=== PATIENT | female | born 1960 | race American Indian/Alaskan Native ===

== ENCOUNTER 2020-10-09 08:41 | Emergency (ER) | payer SELFPAY ==
[2020-10-09 08:48] VITALS: BP 142/75
[2020-10-09] MEDS ORDERED: KETOROLAC 60 MG/2 ML INJ IM ONE (10:17)
--- NOTE | 2020-10-09 10:21 | Emergency Department Report ---
ED Extremity Problem HPI - General Chief complaint: Extremity Problem,Nontraumatic Stated complaint: PAIN IN BOTH LEGS Time Seen by Provider: 10/09/20 09:52 Source: patient Mode of arrival: Ambulatory Limitations: No Limitations - History of Present Illness Initial comments: 60-year-old female with a past medical history of bipolar disorder and hyperten christiano presents to the ER today with complaints of bilateral lower extremity pain but more so on the left leg, posterior to left knee and left lower leg. Patient states that this is an ongoing pain since the beginning of the year. She states that she has seen a primary care doctor while she was living in [facility] and she was told was related to neuropathy. She was prescribed gabapentin which she states that she has been taking but does not seem to be helping. Patient states that she recently moved here a week ago and has not established with a primary care doctor. She is never seen store operations specialist for her pain. She denies any injury prior to the onset of her pain several months ago and she denies any recent injury. She describes the pain as a burning, sharp, tingling, numb pain. She reports intermittent lower back pain with the leg pain. She denies any lower extremity swelling, skin discoloration, chest pain or shortness of breath. MD Complaint: extremity pain -: Gradual (Chronic ) Location: left, right, lower extremity - Related Data Previous Rx's Medication Instructions Recorded Last Taken Type Acetaminophen/Codeine [Tylenol 1 tab PO Q6H PRN #12 tab 10/09/20 Unknown Rx /Codeine # 3 tab] methylPREDNISolone [Medrol 4MG 4 mg PO DAILY #1 tab.ds.pk 10/09/20 Unknown Rx DOSEPAK (21 tabs)] Allergies Allergy/AdvReac Type Severity Reaction Status Date / Time No Known Allergies Allergy Verified 10/09/20 08:56 ED Review of Systems ROS: Stated complaint: PAIN IN BOTH LEGS Other details as noted in HPI ED Past Medical Hx - Past Medical History Previous Medical History?: Yes Hx Hypertension: Yes - Surgical History Past Surgical History?: Yes Additional Surgical History: breast - Social History Smoking Status: Never Smoker - Medications Home Medications: Home Medications Medication Instructions Recorded Confirmed Last Taken Type Acetaminophen/Codeine [Tylenol 1 tab PO Q6H PRN #12 tab 10/09/20 Unknown Rx /Codeine # 3 tab] methylPREDNISolone [Medrol 4MG 4 mg PO DAILY #1 tab.ds.pk 10/09/20 Unknown Rx DOSEPAK (21 tabs)] ED Physical Exam - General Limitations: No Limitations General appearance: alert, in no apparent distress - Head Head exam: Present: atraumatic, normocephalic, normal inspection - Respiratory Respiratory exam: Present: normal lung sounds bilaterally. Absent: respiratory distress - Cardiovascular Cardiovascular Exam: Present: regular rate, normal rhythm, normal heart sounds - GI/Abdominal GI/Abdominal exam: Present: soft. Absent: distended, tenderness, guarding, rebound - Extremities Exam Extremities exam: Present: normal inspection, tenderness (Tenderness mainly to the posterior left knee and left calf but otherwise examination of the rest of the left lower extremity and the examination of the right lower extremity unremarkable.), normal capillary refill. Absent: pedal edema, joint swelling - Back Exam Back exam: Present: normal inspection, paraspinal tenderness (diffuse lumbar spine tenderness, no point tenderness ), vertebral tenderness (No point tenderness but diffuse lumbar tenderness.) ED Course Vital Signs 10/09/20 10/09/20 08:46 10:25 Temperature 98.7 F Pulse Rate 74 Respiratory 20 16 Rate Blood Pressure 142/75 O2 Sat by Pulse 98 Oximetry ED Medical Decision Making - Medical Decision Making Patient presents with complaints of bilateral lower extremity pain more so to the posterior left knee and posterior left lower leg. She states that this pain has been ongoing since the beginning of the year, nothing new or worse recently. She was told she had neuropathy by her primary care doctor in [facility] and has been on gabapentin but she states not helping. She recently moved here and has not established the primary care doctor as yet. She has no lower extremity swelling, skin discoloration, chest pain or shortness of breath. Physical exam shows a well-appearing female who is not currently in any acute distress. She is not toxic and appears well-hydrated. Vital signs are stable. History and physical exam does not suggest DVT, acute arterial occlusion, cellulitis, septic joint, cauda equina syndrome or any other form of cord compression syndrome, CHF or any other emergent conditions warranting testing at this time. Fingerstick blood sugar 79 Informed patient that her pain could be related to sciatica or DJD from her knee/hip and therefore recommend that she follows up with store operations specialist or insurance sales specialist for further testing. She will be given medication to help her pain but recommend she continue with the gabapentin. Patient expressed understanding of instructions and agree with plan. Patient was stable at time of discharge. Critical care attestation.: If time is entered above; I have spent that time in minutes in the direct care of this critically ill patient, excluding procedure time. ED Disposition Clinical Impression: Chronic pain of lower extremity, History of neuropathy Disposition: - TO HOME OR SELFCARE Is pt being admited?: No Does the pt Need Aspirin: No Condition: Stable Instructions: Peripheral Neuropathy, Chronic Pain, Adult, Joint Pain Additional Instructions: I recommend that you take the Medrol Dosepak and the Tylenol threes as prescribed. I recommend that you follow-up with store operations specialist facility discharge instructions for outpatient MRI as this pain could be related to a pinched nerve in your back or degenerative joint disease to the hip or the knee. Return to the ER if your symptoms changes or worsens in any way. Prescriptions: methylPREDNISolone [Medrol 4MG DOSEPAK (21 tabs)] 4 mg PO DAILY #1 tab.ds.pk Acetaminophen/Codeine [Tylenol /Codeine # 3 tab] 1 tab PO Q6H PRN #12 tab PRN Reason: Pain Referrals: VALERIE CADE MD [Staff Physician] - 3-5 Days (Primary care physician ) JEANNINE MARTEL MD [Staff Physician] - 3-5 Days (Manager Field Investigations) [facility] [Provider Group] - 3-5 Days (sustainability specialist Call and ask for [place] location ) Time of Disposition: 10:30
== END 2020-10-09 10:42 | disposition home or self-care (01) ==
LOC: ED 08:41
DX: G89.29 Other chronic pain (principal); M79.661 Pain in right lower leg; G62.9 Polyneuropathy, unspecified; M79.662 Pain in left lower leg; I10 Essential (primary) hypertension; Z98.890 Other specified postprocedural states
CPT/HCPCS: 82962; 96372; 99283; J1885

== ENCOUNTER 2021-01-06 02:04 | Emergency (ER) | payer SELFPAY | END 2021-01-06 02:35 | disposition left against medical advice (07) | LOC: ED 02:04 | DX: E11.9 Type 2 diabetes mellitus without complications (principal); Z53.21 Procedure and treatment not carried out due to patient leaving prior to being seen by health care provider ==